=== PATIENT | female | born 1995 | race Caucasian/White ===

== ENCOUNTER → 2019-05-09 | Outpatient (CLI) | payer OTHER | END | disposition home or self-care (01) | LOC: CFH 12:51 | PROVIDERS: ATTEND Physician Assistant Medical | DX: R51 Headache (principal) | CPT/HCPCS: 70450 ==

== ENCOUNTER 2020-06-16 11:01 | Emergency (ER) | payer OTHER ==
[~2020-06-16] VITALS: Ht 170.2 cm; Wt 55.0 kg
--- NOTE | 2020-06-16 11:12 | NUR ---
PT BROUGHT BACK FOR CHIEF COMPLAINT OF RIGHT LOW ABD PAIN WORSENING FOR TWO WEEKS. DENIES OTHER SYMPTOMS.
--- NOTE | 2020-06-16 11:14 | NUR ---
CAROLINE CORONA AT BEDSIDE FOR EVALUATION
[2020-06-16] MEDS ORDERED: ONDANSETRON 2MG/ML, 2ML ONE (11:19)
[2020-06-16] MEDS ORDERED: ONDANSETRON 2MG/ML, 2ML IVPush ONE (11:30)
[2020-06-16] MEDS ORDERED: SODIUM CHLORIDE FLUSH 10ML SYR IVF ONE (11:30)
[2020-06-16] MEDS ORDERED: SODIUM CHLORIDE 0.9% 1,000ML IVBOLUS ONE (11:30)
[2020-06-16 11:44] LABS: BASOPHILS % (AUTO) 1 % (0-1); EOSINOPHILS % (AUTO) 1 % (1-7); LYMPHOCYTES % (AUTO) 32 % (22-44); MEAN CORPUSCULAR HEMOGLOBIN 31.1 pg (27.0-34.8); MEAN CORPUSCULAR HGB CONC 34.3 g/dL (32.4-35.8); MEAN PLATELET VOLUME 7.9 fL (7.4-10.4); MONOCYTES % (AUTO) 10 % (2-9); NEUTROPHILS % (AUTO) 56 % (42-75); PLATELET COUNT 261 x10^3/uL (130-400); RED BLOOD COUNT 4.17 x10^6/uL (3.82-5.3); RED CELL DISTRIBUTION WIDTH 12.9 % (9.6-15.2)
[2020-06-16 11:45] LABS: MD NO
[2020-06-16 11:50] LABS: MICROSCOPIC NOT IND
--- NOTE | 2020-06-16 11:50 | NUR ---
PT TO US
[2020-06-16 11:57] LABS: ALBUMIN 3.5 g/dL (3.4-5.0); ANION GAP 7 mmol/L (5-15); CALCIUM 8.1 mg/dL (8.5-10.1); CHLORIDE 110 mmol/L (98-107)
[2020-06-16 12:03] LABS: ALANINE AMINOTRANSFERASE 32 U/L (12-78); ALKALINE PHOSPHATASE 65 U/L (45-117); BILIRUBIN,TOTAL 0.6 mg/dL (0.2-1.0); TOTAL PROTEIN 7.2 g/dL (6.4-8.2)
--- NOTE | 2020-06-16 13:22 | NUR ---
pt resting in bed, call light in reach.
--- NOTE | 2020-06-16 13:40 | NUR ---
PT TO CT AND BACK. RESTING COMFORTABLY IN BED.
[2020-06-16] MEDS ORDERED: OMNIPAQUE 350 MG/ML, 100ML BOTTLE ONE (13:46)
[2020-06-16 14:01] VITALS: BP 94/62
--- NOTE | 2020-06-16 14:20 | NUR ---
DISCHARGE INSTRUCTIONS REVIEWED WITH PT.
== END 2020-06-16 14:22 | disposition home or self-care (01) ==
LOC: ED 11:47
DX: N83.291 Other ovarian cyst, right side (principal)
CPT/HCPCS: 36415; 74177; 76830; 80053; 81003; 84703; 85025; 99285; J7030; Q9967; 96360

== ENCOUNTER → 2020-07-16 | Outpatient (CLI) | payer OTHER | END | disposition home or self-care (01) | LOC: LAB 09:43 | PROVIDERS: ATTEND Family Medicine | DX: K52.9 Noninfective gastroenteritis and colitis, unspecified (principal) | CPT/HCPCS: 36415; 82784; 83516; 86255 ==